=== PATIENT | male | born 1955 | race Hispanic/Latino ===

== ENCOUNTER 2018-05-26 09:58 | Outpatient (CLI) | payer BC ==
--- NOTE | 2018-05-26 11:50 | RAD ---
CERVICAL SPINE RADIOGRAPH SERIES: INDICATIONS: Recent injury with pain. TECHNIQUE: Five views, including frontal, lateral, and open-mouth odontoid projections. FINDINGS: There is mild to moderate multilevel cervical spine degenerative change. The cervical spine vertebra l body heights are maintained. No significant subluxations. There is a mild degree of superior endp late irregularity of T1, age indeterminate. Prevertebral soft tissue stripe is normal in caliber. T he dens is intact. The lateral masses of C1 maintain appropriate alignment. IMPRESSION: 1. Mild to moderate multilevel degenerative change throughout the cervical spine. 2. Incidental note of mild superior endplate irregularity of T1, age indeterminate. Correlate clini ramez. If necessary, dedicated imaging followup may be obtained. POS: [facility]
== END 2018-05-26 09:59 | disposition home or self-care (01) ==
LOC: SCSRAD 09:58
PROVIDERS: ATTEND Family Medicine
DX: S16.1XXA Strain of muscle, fascia and tendon at neck level, initial encounter (principal); M47.892 Other spondylosis, cervical region
CPT/HCPCS: 72040